=== PATIENT | female | born 1990 | race American Indian/Alaskan Native ===

== ENCOUNTER → 2018-04-14 | Outpatient (CLI) | payer MEDICAID | LOC: SLR 11:00 | PROVIDERS: ATTEND Otolaryngology | DX: G47.30 Sleep apnea, unspecified (principal); R06.83 Snoring; R40.0 Somnolence | CPT/HCPCS: G0399 ==

== ENCOUNTER 2019-01-30 05:55 | Day surgery (SDC) | payer MEDICAID ==
[2019-01-30] MEDS ORDERED: NACL 0.9% 1000 ML 1,000 ML IV SCH (07:00)
--- NOTE | 2019-01-30 07:26 | Anesthesia Day of Surgery ---
Anesthesia Day of Surgery - Day of Surgery Patient Examined: Yes Patient H&P Reviewed: Yes Patient is NPO: Yes Beta Blockers: No
--- NOTE | 2019-01-30 07:27 | Anesthesia Consultation ---
Anesthesia Consult and Med Hx Date of service: 01/30/19 - Airway Anesthetic Teeth Evaluation: Good ROM Head & Neck: Adequate Mental/Hyoid Distance: Adequate Mallampati Class: Class III Intubation Access Assessment: Good - Pulmonary Exam CTA: No - Cardiac Exam Cardiac Exam: No Murmur - Pre-Operative Health Status ASA Pre-Surgery Classification: ASA3 Proposed Anesthetic Plan: MAC - Pulmonary Hx Smoking: No Hx Asthma: No Hx Respiratory Symptoms: No SOB: No COPD: No Home Oxygen Therapy: No Hx Pneumonia: No Hx Sleep Apnea: No - Cardiovascular System Hx Hypertension: No Hx Coronary Artery Disease: No Hx Heart Attack/AMI: No Hx Angina: No Hx Percutaneous Transluminal Coronary Angioplasty (PTCA): No - Central Nervous System Hx Neuromuscular Disorder: No Hx Seizures: No CVA: No Hx Back Pain: No Hx Psychiatric Problems: No - Gastrointestinal Hx Ulcer: No Hx Gastroesophageal Reflux Disease: No - Endocrine Hx Renal Disease: No Hx End Stage Renal Disease: No Hx Cirrhosis: No Hx Liver Disease: No Hx Insulin Dependent Diabetes: No Hx Non-Insulin Dependent Diabetes: No Hx Thyroid Disease: No Hx Hypothyroidism: No Hx Hyperthyroidism: No - Hematic Hx Anemia: No Hx Sickle Cell Disease: No - Other Systems Hx Alcohol Use: No Hx Substance Use: No Hx Cancer: No Hx Obesity: No
[2019-01-30] MEDS ORDERED: DIPRIVAN 10 MG/ML IV ONE (07:37)
[2019-01-30] MEDS ORDERED: VERSED ONE (07:37)
[2019-01-30] MEDS ORDERED: XYLOCAINE 2% INFILTRATI ONE (07:38)
--- NOTE | 2019-01-30 08:21 | Operative Report ---
PREOPERATIVE DIAGNOSIS: Morbid obesity. POSTOPERATIVE DIAGNOSIS: Normal EGD. OPERATION: EGD. ANESTHESIA: MAC. BLEEDING: None. COMPLICATIONS: None. SPECIMENS: None. INDICATIONS: The patient is a 28-year-old female with history of morbid obesity. She is here for preoperative EGD in preparation for weight loss surgery. Informed consent was obtained. DESCRIPTION OF PROCEDURE: The patient was taken to the endoscopy suite and placed in the left lateral decubitus position. She received MAC anesthesia and a bite block was placed. A time-out was called to ensure proper patient identification and operation. A standard adult gastroscope was inserted into the oropharynx, down the esophagus, into the stomach and the first portion of the duodenum. On retroflexion view, there was no hiatal hernia. I could see no other lesions nor abnormalities up to the level of D1. With this the air was desufflated, the gastroscope was removed. The patient tolerated the procedure well and transferred to the PACU in stable condition. JOB# [id number] ROCKY/YANG CENTENO
[2019-01-30 08:39] VITALS: BP 114/67
== END 2019-01-30 05:56 | disposition home or self-care (01) ==
LOC: GIO 05:55
PROVIDERS: ATTEND Specialist
DX: K30 Functional dyspepsia (principal); E66.01 Morbid (severe) obesity due to excess calories; Z98.84 Bariatric surgery status; Z98.891 History of uterine scar from previous surgery; Z68.42 Body mass index [BMI] 45.0-49.9, adult
CPT/HCPCS: 43235; 81025; J2250; J2704; J7030

== ENCOUNTER 2019-02-06 07:57 | Inpatient (IN) | payer MEDICAID ==
--- NOTE | 2019-01-31 11:42 | Anesthesia Consultation ---
Anesthesia Consult and Med Hx Date of service: 01/31/19 - Airway Anesthetic Teeth Evaluation: Good ROM Head & Neck: Adequate Mental/Hyoid Distance: Adequate Mallampati Class: Class II Intubation Access Assessment: Good - Pulmonary Exam CTA: Yes - Cardiac Exam Cardiac Exam: RRR - Pre-Operative Health Status ASA Pre-Surgery Classification: ASA3 Proposed Anesthetic Plan: General - Pulmonary Hx Smoking: No (SLEEP STUDY NEG) - Central Nervous System Hx Psychiatric Problems: No - Hematic Hx Anemia: Yes (10.4 (01/25/19)) Hx Sickle Cell Disease: Yes (TRAIT)
[~2019-02-06 07:57] MED LIST: NEURONTIN PO NR; TYLENOL PO NR
[2019-02-06] MEDS ORDERED: LACTATED RINGERS 1,000 ML IV SCH (09:00)
[2019-02-06] MEDS ORDERED: LOVENOX SUB-Q NR (09:00)
[2019-02-06] MEDS ORDERED: FLAGYL 500 MG/100 ML 500 MG/100 ML BAG IV NR (09:00)
[2019-02-06] MEDS ORDERED: ANCEF/STERILE WATER 2 GM/20 ML 2 GM/20 ML SYRINGE IV NR (09:00)
[2019-02-06] MEDS ORDERED: TRANSDERM-SCOP TD SCH (09:00)
[2019-02-06] MEDS ORDERED: DIPRIVAN 10 MG/ML IV ONE (10:12)
[2019-02-06] MEDS ORDERED: SUBLIMAZE ONE (10:13)
[2019-02-06] MEDS ORDERED: XYLOCAINE MPF 2% ONE (10:14)
[2019-02-06] MEDS ORDERED: ZEMURON IV ONE (10:14)
[2019-02-06] MEDS ORDERED: ZOFRAN ONE (10:14)
[2019-02-06] MEDS ORDERED: PEPCID IV NR (10:14)
[2019-02-06] MEDS ORDERED: VERSED ONE (10:14)
[2019-02-06] MEDS ORDERED: TORADOL IV PRN (10:15)
[2019-02-06] MEDS ORDERED: ZOFRAN IV PRN ×2 (10:15→12:37)
[2019-02-06] MEDS ORDERED: SUBLIMAZE IV PRN (10:15)
--- NOTE | 2019-02-06 10:15 | Anesthesia Day of Surgery ---
Anesthesia Day of Surgery - Day of Surgery Patient Examined: Yes Patient H&P Reviewed: Yes Patient is NPO: Yes Beta Blockers: No Cardiac Clearance: No Pulmonary Clearance: No Cecilio's Test: N/A
[2019-02-06] MEDS ORDERED: NEURONTIN PO NR (11:00)
[2019-02-06] MEDS ORDERED: MARCAINE-EPI 0.5%-1:200,000 INFILTRATI ONE ×2 (11:26→11:33)
[2019-02-06] MEDS ORDERED: XYLOCAINE 1% 20 mL ONE (11:26)
[2019-02-06] MEDS ORDERED: NACL 0.9% IR ONE (11:33)
[2019-02-06] MEDS ORDERED: XYLOCAINE 1% 20 mL INFILTRATI ONE (11:33)
[2019-02-06] MEDS ORDERED: ROBINUL ONE (12:36)
[2019-02-06] MEDS ORDERED: BLOXIVERZ ONE (12:36)
[2019-02-06] MEDS ORDERED: APRESOLINE IV PRN (12:37)
[2019-02-06] MEDS ORDERED: DECADRON ONE (12:37)
[2019-02-06] MEDS ORDERED: MORPHINE IV PRN (12:37)
[2019-02-06] MEDS: MYLICON PO PRN ×2 (13:21→21:20)
[2019-02-06] MEDS: DILAUDID IV PRN ×2 (13:34→13:45)
[2019-02-06] MEDS: NORCO PO PRN ×2 (14:14→18:04)
[2019-02-06] MEDS: LACTATED RINGERS 1,000 ML IV SCH (18:48)
[2019-02-06] MEDS: REGLAN IV PRN (21:20)
[2019-02-07] MEDS: LACTATED RINGERS 1,000 ML IV SCH (03:36)
[2019-02-07 04:34] VITALS: BP 106/49
[2019-02-07] MEDS: REGLAN IV PRN (06:33)
[2019-02-07] MEDS: NORCO PO PRN (06:33)
[2019-02-07] MEDS: MYLICON PO PRN (06:33)
--- NOTE | 2019-02-07 07:35 | Discharge Summary ---
Providers - Providers Date of Admission: 02/06/19 12:37 Date of discharge: 02/07/19 Attending physician: DEMARCUS DAVISON Primary care physician: DESHAUN LINDSEY MD Hospitalization Reason for admission: postop care Condition: Good Procedures: 02/06/19: Laparoscopic sleeve gastrectomy Hospital course: 28F admitted after her operation for routine postop monitoring. She did well with no issues. She did c/o mild shoulder pain, but vitals were all WNL. She was dc home POD1. Disposition: DC-01 TO HOME OR SELFCARE Core Measure Documentation - Palliative Care Palliative Care/ Comfort Measures: Not Applicable - Core Measures Any of the following diagnoses?: none - VTE Discharge Requirements Deep Vein Thrombosis/Pulmonary Embolism Present on Admission: No - Acute SC Discharge Requirements Aspirin at discharge: No Reason for no aspirin on DC: Surgical contraindication - Heart Failure Discharge Requirements DINA/ARB for LVSD if EF <40%: Not Applicable - Stroke Discharge Requirements Statin for LDL = or >70 mg/dl on DC: Not Applicable Exam - Physical Exam Narrative exam: Gen: AAO, NAD Heart: RRR Lungs: CTAB Abd: Obese, soft, ND, minimally tender. Bandages cdi. EXT: No LE edema - Constitutional Vitals: Temp Pulse Resp BP Pulse Ox 98.6 F 52 L 18 106/49 99 02/07/19 04:33 02/07/19 04:33 02/07/19 06:33 02/07/19 04:33 02/07/19 04:33 Plan Diet: clear liquids Wound: keep clean and dry Special Instructions: no heavy lifting Additional Instructions: magali Davison as scheduled Follow up with: PRIMARY CAREMD [Primary Care Provider] - 7 Days
[2019-02-07 08:33] LABS: Basophils % (Auto) 0.5 % (0.0-1.8); Hematocrit 28.3 % (30.3-42.9); Lymphocytes # (Auto) 1.2 K/mm3 (1.2-5.4); Lymphocytes % (Auto) 12.9 % (13.4-35.0); Mean Corpuscular HGB Conc 32 % (30-34); Monocytes # (Auto) 0.8 K/mm3 (0.0-0.8); Monocytes % (Auto) 8.7 % (0.0-7.3); Platelet Count 439 K/mm3 (140-440); Red Blood Count 4.59 M/mm3 (3.65-5.03)
[2019-02-07 08:37] LABS: Mean Corpuscular Volume 62 fl (79-97)
[2019-02-07 08:49] LABS: Alanine Aminotransferase 14 units/L (7-56); Albumin 3.4 g/dL (3.9-5); BUN/Creatinine Ratio 12; Blood Urea Nitrogen 6 mg/dL (7-17); Calcium 8.7 mg/dL (8.4-10.2); Hemolysis Index 6
[2019-02-07] MEDS ORDERED: LOVENOX SUB-Q SCH (10:00)
== END 2019-02-07 10:50 | disposition home or self-care (01) | DRG 621 ==
LOC: OR 07:57 → 3B-SURG 12:37
PROVIDERS: ADMIT Specialist; ATTEND Specialist
PROC: 0DB64Z3 Excision of Stomach, Percutaneous Endoscopic Approach, Vertical (ICD-10-PCS; principal; 2019-02-07)
PROC: 0WQF4ZZ Repair Abdominal Wall, Percutaneous Endoscopic Approach (ICD-10-PCS; 2019-02-07)
DX: E66.01 Morbid (severe) obesity due to excess calories (principal); Z68.42 Body mass index [BMI] 45.0-49.9, adult; Z71.3 Dietary counseling and surveillance
CPT/HCPCS: 36415; 80053; 81025; 85025; 88307; G0378; J0690; J1100; J1170; J1650; J1885; J2250; J2270; J2405; J2704; J2710; J2765; J3010; J7120